=== PATIENT | female | born 1960 | race Caucasian/White ===

== ENCOUNTER → 2016-10-22 | Outpatient (CLI) | payer OTHER ==
--- NOTE | 2016-10-22 10:10 | MR ---
EXAMINATION TYPE: MR cervical spine wo con DATE OF EXAM: 10/22/2016 COMPARISON: NONE HISTORY: Cervical Radiculopathy TECHNIQUE: Multiplanar, multisequence images of the cervical spine were acquired. C2-C3: Right posterior paracentral extension of endplate disc complex causes minimal anterolateral ma ss effect on the thecal sac. No significant foraminal encroachment or central stenosis. There is a sm all central disc protrusion causing slight anterior mass effect on the thecal sac. C3-C4: Listhesis likely contributes to cause some foraminal encroachment greater on the left than on the right. Differential posterior disc bulge causes mild anterior mass effect on the thecal sac, no s ignificant central stenosis. C4-C5: Posterior extension of endplate disc complex results in mild central stenosis, right-sided for aminal encroachment is present greater than left due to lateral extension of endplate disc complex. C5-C6: Moderate central stenosis is present due to posterior extension of endplate disc complex, the endplate changes extending laterally to cause bilateral foraminal encroachment. C6-C7: Posterior extension of endplate disc complex results in mild central canal stenosis, there is bilateral foraminal encroachment left greater than right due to lateral extension endplate disc compl ex. C7-T1: No evidence for degenerative disc disease. No disc bulge/herniation or protrusion. No Canal stenosis. Foramina are patent bilaterally. Cervical segments are intact. Anterolisthesis grade 1 C3-4, retrolisthesis grade 1 C4-5, C5-6. Loss o f disc height and signal present at the intervertebral levels, there is multilevel spondylosis and en dplate discogenic marrow signal change. Cervical spinal cord is showing some questionable increased s ignal on T2-weighted sequences at approximately C5-6 seen on sagittal images, is not well seen on axi al images however and may be artifactual. Craniovertebral junction relationships are within normal l imits. Loss of normal cervical lordosis. IMPRESSION: Multilevel degenerative disc disease and foraminal encroachment. Difficult to exclude myelopathy.
== END | disposition home or self-care (01) ==
LOC: RADMRIMAIN 08:33
PROVIDERS: ATTEND Family Medicine
DX: M50.11 Cervical disc disorder with radiculopathy, high cervical region (principal)
CPT/HCPCS: 72141

== ENCOUNTER 2018-02-27 00:04 | Emergency (ER) | payer OTHER ==
[2018-02-27 00:13] VITALS: RESP 16; TEMP 99.5
[2018-02-27] MEDS ORDERED: ACETAMINOPHEN TAB 325 MG TAB PO STA (00:40)
[2018-02-27] MEDS ORDERED: VANCOMYCIN IV PER PHARMACY 1 EACH MISC MISCELLANE PRN (00:40)
[2018-02-27] MEDS ORDERED: CEFEPIME 2 GM in SODIUM CHLORIDE 0.9% 50 ML IVPB STA (00:41)
[2018-02-27] MEDS ORDERED: VANCOMYCIN 1,250 MG in SODIUM CHLORIDE 0.9% 250 ML IVPB STA (00:48)
--- NOTE | 2018-02-27 00:55 | CT ---
EXAMINATION TYPE: CT brain wo con DATE OF EXAM: 02/27/2018 COMPARISON: 11/28/2013 HISTORY: recent brain blled and brain surgery. AMS scanned CT DLP: 1129.4 mGycm Automated exposure control for dose reduction was used. FINDINGS: There is right posterior frontal craniotomy defect. Ventricles of normal size. There is no mass effec t nor midline shift. There is no sign of intracranial hemorrhage. There is slight widening of the epi dural space over the craniotomy defect. This measures up to 4 mm. There is no significant mass effect . I see no sign of intracranial hemorrhage. There is minimal thalamic calcification. IMPRESSION: RECENT CRANIOTOMY DEFECT. SLIGHT WIDENING OF THE EPIDURAL SPACE AT THE SURGERY SITE WITH LOW-DENSITY FLUID. NO SIGNIFICANT MASS EFFECT. NO EVIDENCE OF ACUTE HEMORRHAGE.
--- NOTE | 2018-02-27 01:32 | ED ---
Altered Mental Status HPI - General Source: family Mode of arrival: wheelchair Limitations: no limitations <Barbara Stern - Last Filed: 02/27/18 12:24> <Ignacia Phan - Last Filed: 02/28/18 02:48> - General Chief Complaint: Altered Mental Status Stated Complaint: Altered Mental Status Time Seen by Provider: 02/27/18 00:18 - History of Present Illness Initial Comments: 57-year-old female With past medical history of previous C1-C2 fracture, spinal stenosis, fall with intracranial hemorrhage status post craniectomy 02/01/2018 presenting today for chief complaint of altered mental status. Patient presents with [id number] and son. Who state that patient was discharged on 02/14 2018 after craniectomy from intracranial hemorrhage performed that [facility] in [place]. They state the hemorrhage was due to multiple falls in the home. They state since discharge patient has been improving daily, they stated that up until the last 2 days patient was almost back to normal state of mind. However for the past 2 days patient has had low-grade fever when visited by home nursing staff. In addition patient has seen more confused, she often forgets the date. Family was concerned o about deterioration of mental status and presented to the emergency department this evening for evaluation via EMS. Upon arrival patient is tachycardic with a low-grade fever of 99.5. Pt complains of headache of the left side of head, chills. Denies neck stiffness, photophobia, shortness of breath, chest pain, back pain, abdominal pain, nausea or vomiting, numbness or tingling, dysuria or hematuria, constipation or diarrhea, or visual changes, or any other complaints. EKG revealed sinus tachycardia. Patient appears confused, when asked today's date she repeats birthday. She is aware of location and year. (Barbara Stern) - Related Data Home Medications Medication Instructions Recorded Confirmed DULoxetine HCL [Cymbalta] 90 mg PO HS 04/20/17 02/27/18 Fluticasone Nasal [place] [Flonase 2 spray EA NOSTRIL BID 04/20/17 02/27/18 Nasal [place]] Ibuprofen [Motrin] 800 mg PO Q8H PRN 04/20/17 02/27/18 Lisinopril(Unknown Dose) 20 mg PO HS 04/20/17 02/27/18 OLANZapine [ZyPREXA] 2.5 mg PO HS 04/20/17 02/27/18 lamoTRIgine [LaMICtal] 400 mg PO HS 04/20/17 04/20/17 Morphine Sulfate ER [Ms Contin] 60 mg PO BID 04/24/17 02/27/18 Allergies Allergy/AdvReac Type Severity Reaction Status Date / Time No Known Allergies Allergy Verified 04/20/17 20:36 Review of Systems ROS Other: All systems not noted in ROS Statement are negative. Constitutional: Reports: fever, chills. Denies: night sweats Eyes: Reports: eye pain (behind left eye, site of facial reconstruction) ENT: Denies: ear pain, throat pain Respiratory: Denies: cough, dyspnea, wheezes, hemoptysis, stridor Cardiovascular: Denies: chest pain, palpitations Gastrointestinal: Denies: abdominal pain, nausea, vomiting, diarrhea, constipation Genitourinary: Denies: urgency, dysuria Skin: Denies: rash Neurological: Reports: headache, weakness, confusion. Denies: numbness, paresthesias, abnormal gait, vertigo <Barbara Stern - Last Filed: 02/27/18 12:24> ROS Other: All systems not noted in ROS Statement are negative. <Ignacia Phan P - Last Filed: 02/28/18 02:48> ROS Statement: Those systems with pertinent positive or pertinent negative responses have been documented in the HPI. Past Medical History Past Medical History: Hypertension Additional Past Medical History / Comment(s): bipolar, C1-C2 fracture October 2013. Spinal stenosis., fall with a brain bleed 02/01/18 History of Any Multi-Drug Resistant Organisms: None Reported Past Surgical History: No Surgical Hx Reported Additional Past Surgical History / Comment(s): brain surgery and facial reconstruction surgery 02/02/2018 Past Psychological History: Bipolar, PTSD Smoking Status: Former smoker Past Alcohol Use History: Occasional Past Drug Use History: Marijuana <Barbara Stern - Last Filed: 02/27/18 12:24> General Exam Limitations: no limitations <Barbara Stern - Last Filed: 02/27/18 12:24> <Ignacia Phan - Last Filed: 02/28/18 02:48> - General Exam Comments Initial Comments: General: The patient is awake and appears confused, with fluctuating mental status. Able to follow verbal commands. Eye: +3 mm pupils are equal, round and reactive to light-appear sluggish, extra -ocular movements are intact. No nystagmus. There is normal conjunctiva bilaterally. No signs of icterus. Ears, nose, mouth and throat: There are moist mucous membranes and no oral lesions. Neck: The neck is supple, there is no tenderness or JVD. No nuchal rigidity or pain to palpation midline. Cardiovascular: There is a regular rate and rhythm. No murmur, rub or gallop is appreciated. Respiratory: Lungs are clear to auscultation, respirations are non-labored, breath sounds are equal. No wheezes, stridor, rales, or rhonchi. Gastrointestinal: Soft, non-distended, non-tender abdomen without masses or organomegaly noted. There is no rebound or guarding present. Bowel sounds are unremarkable Musculoskeletal: Normal ROM, no tenderness. Strength 5/5 of the UE and LE equally b/l. Sensation intact of the UE and LE bilaterally. Radial pulses equal bilaterally 2+. Neurological: A&O x 3. CN II-XII intact, There are no obvious motor or sensory deficits. Coordination appears grossly intact. Speech is appropriate, however slow. Mild dysarthria. (-) Pronator drift. Pt is able to hand flap, however slowed. Skin: Skin is warm and dry and no rashes or lesions are noted. Incision on right side of scalp, non-erythematous. Psychiatric: Cooperative. (Barbara Stern) Vital Signs 02/27/18 02/27/18 02/27/18 00:07 00:59 01:00 Temperature 99.5 F Pulse Rate 112 H 105 H 102 H Respiratory 16 18 18 Rate Blood Pressure 120/81 103/59 103/59 O2 Sat by Pulse 98 Oximetry 02/27/18 02/27/18 02/27/18 01:10 01:20 01:30 Temperature Pulse Rate 109 H 105 H 105 H Respiratory 18 18 17 Rate Blood Pressure 117/73 117/73 110/71 O2 Sat by Pulse Oximetry 02/27/18 02/27/18 02/27/18 01:40 01:42 01:50 Temperature 99.5 F Pulse Rate 105 H 102 H Respiratory 18 16 Rate Blood Pressure 110/71 103/73 O2 Sat by Pulse Oximetry 02/27/18 02/27/18 02:00 02:04 Temperature Pulse Rate 101 H 101 H Respiratory 18 16 Rate Blood Pressure 103/73 114/75 O2 Sat by Pulse Oximetry Medical Decision Making - Lab Data Result diagrams: 02/27/18 02:00 02/27/18 00:55 <Barbara Stern - Last Filed: 02/27/18 12:24> - Lab Data Result diagrams: 02/27/18 02:00 02/27/18 00:55 <Ignacia Phan - Last Filed: 02/28/18 02:48> - Medical Decision Making pt s/p craniotomy/facial reconstruction presenting with low-grade fever and increasing confusion concerning for infection. Sepsis protocol initiated. CT w /o contrast obtained. Blood culture pending. Patient started on vancomycin and cefepime for coverage for any intracranial abscess or infectious process. EKG revealed sinus tachycardia. Troponin (-). CT without contrast revealed low- density fluid in the epidural space, no other acute abnormalities noted. Attending physician Dr. Phan evaluated patient. [facility] neurosurgical team contacted by attending provider, admission accepted by ER physician at [facility]. Dr. Mancuso pr neurosurgeon will be contacted. Pt will be transferred for further escalation and continuity of care. 30 minutes prior to discharge, pt HgB resulted, ~5. Lab called requesting redraw. Pt agreeable with transfer, EMS arrived prior to second result for HgB. However at this time we feel delay in transfer could result in worsening of patient condition. She is currently hemodynamically stable and not acutely altered. Pt will be transfered and [facility] will be notified of repeat HgB studies. Pt transferred in stable condition. (Barbara Stern) I was available for consultation in the emergency department. The history and physical exam were done by the midlevel provider. I was consulted for this patient's care. I reviewed the case with the midlevel provider and based on their presentation of the patient, I agree with the assessment, medical decision making. I contacted [facility] and spoke with Dr. Bowles who reviewed the patient's record, confirms the patient did have neurosurgery with Dr. Sherif Mancuso, accepts the transfer from ER to ER for presumed postoperative intracranial infection. At the time of transfer labs are not resulted, however advised we will fax our lab workup down there he agreed with plan for empiric antibiotics. (Ignacia Phan) - Lab Data Lab Results 02/27/18 02/27/18 02/27/18 Range/Units 00:55 00:55 00:55 WBC (3.8-10.6) k/uL RBC (3.80-5.40) m/uL Hgb (11.4-16.0) gm/dL Hct (34.0-46.0) % MCV (80.0-100.0) fL MCH (25.0-35.0) pg MCHC (31.0-37.0) g/dL RDW (11.5-15.5) % Plt Count (150-450) k/uL Neutrophils % % Lymphocytes % % Monocytes % % Eosinophils % % Basophils % % Neutrophils # (1.3-7.7) k/uL Lymphocytes # (1.0-4.8) k/uL Monocytes # (0-1.0) k/uL Eosinophils # (0-0.7) k/uL Basophils # (0-0.2) k/uL Hypochromasia Poikilocytosis PT 9.8 (9.0-12.0) sec INR 1.0 (<1.2) APTT 24.0 (22.0-30.0) sec Sodium 138 (137-145) mmol/L Potassium 4.5 (3.5-5.1) mmol/L Chloride 106 (98-107) mmol/L Carbon Dioxide 25 (22-30) mmol/L Anion Gap 7 mmol/L BUN 17 (7-17) mg/dL Creatinine 0.66 (0.52-1.04) mg/dL Est GFR (CKD-EPI)AfAm >90 (>60 ml/min/1.73 sqM) Est GFR (CKD-EPI)NonAf >90 (>60 ml/min/1.73 sqM) Glucose 106 H (74-99) mg/dL Plasma Lactic Acid Jaden (0.7-2.0) mmol/L Calcium 8.6 (8.4-10.2) mg/dL Total Bilirubin 0.2 (0.2-1.3) mg/dL AST 38 H (14-36) U/L ALT 25 (9-52) U/L Alkaline Phosphatase 97 (38-126) U/L Troponin I <0.012 (0.000-0.034) ng/mL Total Protein 5.3 L (6.3-8.2) g/dL Albumin 2.7 L (3.5-5.0) g/dL Urine Color Urine Appearance (Clear) Urine pH (5.0-8.0) Ur Specific [place] (1.001-1.035) Urine Protein (Negative) Urine Glucose (UA) (Negative) Urine Ketones (Negative) Urine Blood (Negative) Urine Nitrite (Negative) Urine Bilirubin (Negative) Urine Urobilinogen (<2.0) mg/dL Ur Leukocyte Esterase (Negative) Urine WBC (0-5) /hpf Ur Squamous Epith Cells (0-4) /hpf Amorphous Sediment (None) /hpf Urine Bacteria (None) /hpf Hyaline Casts (0-2) /lpf Urine Mucus (None) /hpf Influenza Type A RNA (Not Detectd) Influenza Type B (PCR) (Not Detectd) 02/27/18 02/27/18 02/27/18 Range/Units 00:55 01:02 01:34 WBC (3.8-10.6) k/uL RBC (3.80-5.40) m/uL Hgb (11.4-16.0) gm/dL Hct (34.0-46.0) % MCV (80.0-100.0) fL MCH (25.0-35.0) pg MCHC (31.0-37.0) g/dL RDW (11.5-15.5) % Plt Count (150-450) k/uL Neutrophils % % Lymphocytes % % Monocytes % % Eosinophils % % Basophils % % Neutrophils # (1.3-7.7) k/uL Lymphocytes # (1.0-4.8) k/uL Monocytes # (0-1.0) k/uL Eosinophils # (0-0.7) k/uL Basophils # (0-0.2) k/uL Hypochromasia Poikilocytosis PT (9.0-12.0) sec INR (<1.2) APTT (22.0-30.0) sec Sodium (137-145) mmol/L Potassium (3.5-5.1) mmol/L Chloride (98-107) mmol/L Carbon Dioxide (22-30) mmol/L Anion Gap mmol/L BUN (7-17) mg/dL Creatinine (0.52-1.04) mg/dL Est GFR (CKD-EPI)AfAm (>60 ml/min/1.73 sqM) Est GFR (CKD-EPI)NonAf (>60 ml/min/1.73 sqM) Glucose (74-99) mg/dL Plasma Lactic Acid Jaden 1.2 (0.7-2.0) mmol/L Calcium (8.4-10.2) mg/dL Total Bilirubin (0.2-1.3) mg/dL AST (14-36) U/L ALT (9-52) U/L Alkaline Phosphatase (38-126) U/L Troponin I (0.000-0.034) ng/mL Total Protein (6.3-8.2) g/dL Albumin (3.5-5.0) g/dL Urine Color Yellow Urine Appearance Cloudy H (Clear) Urine pH 8.5 H (5.0-8.0) Ur Specific [place] 1.013 (1.001-1.035) Urine Protein Trace H (Negative) Urine Glucose (UA) Negative (Negative) Urine Ketones Negative (Negative) Urine Blood Negative (Negative) Urine Nitrite Negative (Negative) Urine Bilirubin Negative (Negative) Urine Urobilinogen 2.0 (<2.0) mg/dL Ur Leukocyte Esterase Negative (Negative) Urine WBC <1 (0-5) /hpf Ur Squamous Epith Cells 6 H (0-4) /hpf Amorphous Sediment Few H (None) /hpf Urine Bacteria Occasional H (None) /hpf Hyaline Casts 4 H (0-2) /lpf Urine Mucus Rare H (None) /hpf Influenza Type A RNA Not Detected (Not Detectd) Influenza Type B (PCR) Not Detected (Not Detectd) 02/27/18 Range/Units 02:00 WBC 5.3 (3.8-10.6) k/uL RBC 2.09 L (3.80-5.40) m/uL Hgb 5.8 L* (11.4-16.0) gm/dL Hct 18.3 L* (34.0-46.0) % MCV 87.6 (80.0-100.0) fL MCH 27.6 (25.0-35.0) pg MCHC 31.5 (31.0-37.0) g/dL RDW 15.4 (11.5-15.5) % Plt Count 555 H (150-450) k/uL Neutrophils % 67 % Lymphocytes % 24 % Monocytes % 5 % Eosinophils % 2 % Basophils % 0 % Neutrophils # 3.6 (1.3-7.7) k/uL Lymphocytes # 1.3 (1.0-4.8) k/uL Monocytes # 0.3 (0-1.0) k/uL Eosinophils # 0.1 (0-0.7) k/uL Basophils # 0.0 (0-0.2) k/uL Hypochromasia Marked Poikilocytosis Slight PT (9.0-12.0) sec INR (<1.2) APTT (22.0-30.0) sec Sodium (137-145) mmol/L Potassium (3.5-5.1) mmol/L Chloride (98-107) mmol/L Carbon Dioxide (22-30) mmol/L Anion Gap mmol/L BUN (7-17) mg/dL Creatinine (0.52-1.04) mg/dL Est GFR (CKD-EPI)AfAm (>60 ml/min/1.73 sqM) Est GFR (CKD-EPI)NonAf (>60 ml/min/1.73 sqM) Glucose (74-99) mg/dL Plasma Lactic Acid Jaden (0.7-2.0) mmol/L Calcium (8.4-10.2) mg/dL Total Bilirubin (0.2-1.3) mg/dL AST (14-36) U/L ALT (9-52) U/L Alkaline Phosphatase (38-126) U/L Troponin I (0.000-0.034) ng/mL Total Protein (6.3-8.2) g/dL Albumin (3.5-5.0) g/dL Urine Color Urine Appearance (Clear) Urine pH (5.0-8.0) Ur Specific [place] (1.001-1.035) Urine Protein (Negative) Urine Glucose (UA) (Negative) Urine Ketones (Negative) Urine Blood (Negative) Urine Nitrite (Negative) Urine Bilirubin (Negative) Urine Urobilinogen (<2.0) mg/dL Ur Leukocyte Esterase (Negative) Urine WBC (0-5) /hpf Ur Squamous Epith Cells (0-4) /hpf Amorphous Sediment (None) /hpf Urine Bacteria (None) /hpf Hyaline Casts (0-2) /lpf Urine Mucus (None) /hpf Influenza Type A RNA (Not Detectd) Influenza Type B (PCR) (Not Detectd) - EKG Data EKG Comments: A 12-lead EKG was performed and shows the following: Rate is 104BPM, and rhythm is normal sinus. There are normal QRS complexes and normal R-wave progression. ST segments have no elevation or depression, and NC segments appear normal. Sinus tachycardia, otherwise normal EKG. (Barbara Stern) Disposition Time of Disposition: 01:33 - Out of Hospital Transfer - Req. Specs Out of Hospital Transfer - Requested Specifics: Other Emergency Center ([facility] <Barbara Stern - Last Filed: 02/27/18 12:24> <Ignacia Phan - Last Filed: 02/28/18 02:48> Clinical Impression: Altered mental status Disposition: OTHER INSTITUTION NOT DEFINED Condition: Stable Instructions: Altered Mental Status (ED) Referrals: Debra Mccray DO [Primary Care Provider] - 1-2 days
[2018-02-27 01:37] LABS: Prothrombin Time 9.8 sec (9.0-12.0)
[2018-02-27 01:40] LABS: ALT 25 U/L (9-52); AST 38 U/L (14-36); Albumin 2.7 g/dL (3.5-5.0); Alkaline Phosphatase 97 U/L (38-126); Anion Gap 7 mmol/L; Blood Urea Nitrogen 17 mg/dL (7-17); Calcium 8.6 mg/dL (8.4-10.2); Carbon Dioxide 25 mmol/L (22-30); Chloride 106 mmol/L (98-107); Glucose 106 mg/dL (74-99); Potassium 4.5 mmol/L (3.5-5.1); Sodium 138 mmol/L (137-145); Total Bilirubin 0.2 mg/dL (0.2-1.3); Total Protein 5.3 g/dL (6.3-8.2)
[2018-02-27] MEDS: SODIUM CHLORIDE 0.9% 500 ML 500 ML IV SCH (01:40)
[2018-02-27 02:05] VITALS: BP 114/75; PULSE 101
[2018-02-27 02:06] LABS: Amorphous Sediment,Urine Few /hpf; Appearance,Urine Cloudy (Clear); Bacteria,Urine Occasional /hpf; Bilirubin,Urine Negative (Negative); Blood,Urine Negative (Negative); Color,Urine Yellow; Glucose,Urine (UA) Negative (Negative); Hyaline Casts,Urine 4 /lpf (0-2); Ketones,Urine Negative (Negative); Leukocyte Esterase,Urine Negative (Negative); Mucus,Urine Rare /hpf; Nitrite,Urine Negative (Negative); PH, Urine 8.5 (5.0-8.0); Protein,Urine Trace (Negative); Specific Gravity,Urine 1.013 (1.001-1.035); Squamous Epithelial Cell,Urine 6 /hpf (0-4); WBC,Urine <1 /hpf (0-5)
[2018-02-27 02:12] LABS: Basophils % (A) 0 %; Eosinophils # (A) 0.1 k/uL (0-0.7); Eosinophils % (A) 2 %; Hypochromasia Marked; Lymphocytes # (A) 1.3 k/uL (1.0-4.8); Lymphocytes % (A) 24 %; MCH 27.6 pg (25.0-35.0); MCHC 31.5 g/dL (31.0-37.0); MCV 87.6 fL (80.0-100.0); Mean Platelet Volume 6.3; Monocytes # (A) 0.3 k/uL (0-1.0); Monocytes % (A) 5 %; Neutrophils # (A) 3.6 k/uL (1.3-7.7); Neutrophils % (A) 67 %; Platelet Count 555 k/uL (150-450); Poikilocytosis Slight; RBC 2.09 m/uL (3.80-5.40); RDW 15.4 % (11.5-15.5); WBC 5.3 k/uL (3.8-10.6)
[2018-02-27 02:27] LABS: HCT 18.3 % (34.0-46.0); HGB 5.8 gm/dL (11.4-16.0)
== END 2018-02-27 02:15 | disposition other institution (70) ==
LOC: EC 00:04
DX: R41.82 Altered mental status, unspecified (principal); R51 Headache; R50.9 Fever, unspecified; R00.0 Tachycardia, unspecified; I10 Essential (primary) hypertension; F31.9 Bipolar disorder, unspecified; F43.10 Post-traumatic stress disorder, unspecified; Z91.81 History of falling; Z87.39 Personal history of other diseases of the musculoskeletal system and connective tissue; Z98.890 Other specified postprocedural states; Z87.891 Personal history of nicotine dependence; Z79.891 Long term (current) use of opiate analgesic; Z79.899 Other long term (current) drug therapy
CPT/HCPCS: 36415; 93005; 80053; 83605; 84484; 85025; 85610; 85730; 81001; 87040; 87086; 87502; 70450; 99285; J0692

== ENCOUNTER → 2018-07-05 | Outpatient (CLI) | payer OTHER ==
--- NOTE | 2018-07-05 12:16 | CT ---
EXAMINATION TYPE: CT brain wo con DATE OF EXAM: 07/05/2018 COMPARISON: 02/27/2018 INDICATION: Traumatic subdural hemorrhage w/o LOC DLP: 1177 mGycm, Automated exposure control for dose reduction was used. CONTRAST: None CT of the brain is performed utilizing 3 mm thick sections through the posterior fossa and 3 mm thick sections through the remaining calvarium. Study is performed within 24 hours of arrival to the hosp ital. No abnormal hyperdensity is present to suggest an acute intracranial hemorrhage. No mass lesion is evident. Physiologic basal ganglia calcification is present No acute infarcts are evident. The previous subtle changes along the right parietal region are not ev ident on the current examination. Ventricles and sulci are appropriate for the patient age. Paranasal sinuses and mastoid air cells within the [id number] are clear. Old right temporal craniotomy is evident. There is prior repair of left facial bones. IMPRESSIONS: 1. No acute intracranial process. 2. Old postsurgical changes right temporal bone and facial bones.
== END ==
LOC: RADCTMAIN 11:34
PROVIDERS: ATTEND Neurological Surgery
DX: S06.5X0D Traumatic subdural hemorrhage without loss of consciousness, subsequent encounter (principal)
CPT/HCPCS: 70450

== ENCOUNTER 2024-04-04 18:53 | Emergency (ER) | payer MEDICARE, OTHER ==
[2024-04-04 19:04] VITALS: RESP 18
[2024-04-04 19:50] LABS: Basophils # (A) 0.1 k/uL (0-0.2); Basophils % (A) 0 %; Eosinophils # (A) 0.1 k/uL (0-0.7); Eosinophils % (A) 1 %; HCT 43.8 % (34.0-46.0); HGB 13.7 gm/dL (11.4-16.0); Lymphocytes # (A) 1.9 k/uL (1.0-4.8); Lymphocytes % (A) 11 %; MCH 28.4 pg (25.0-35.0); MCHC 31.3 g/dL (31.0-37.0); Mean Platelet Volume 9.2; Monocytes # (A) 0.7 k/uL (0-1.0); Monocytes % (A) 4 %; Neutrophils # (A) 14.7 k/uL (1.3-7.7); Neutrophils % (A) 84 %; Platelet Count 252 k/uL (150-450); RBC 4.82 m/uL (3.80-5.40); WBC 17.5 k/uL (3.8-10.6)
[2024-04-04 19:57] LABS: ALT 27 U/L (4-34); AST 39 U/L (14-36); African American GFR (CKD) >90 (>60 ml/min/1.73 sqM); Albumin 4.9 g/dL (3.5-5.0); Alkaline Phosphatase 108 U/L (38-126); Anion Gap 11 mmol/L; Blood Urea Nitrogen 16 mg/dL (7-17); Calcium 10.6 mg/dL (8.4-10.2); Carbon Dioxide 26 mmol/L (22-30); Chloride 103 mmol/L (98-107); Glucose 109 mg/dL (74-99); Lipase 38 U/L (23-300); Magnesium 1.8 mg/dL (1.6-2.3); Non-African American GFR(CKD) >90 (>60 ml/min/1.73 sqM); Potassium 4.1 mmol/L (3.5-5.1); Sodium 140 mmol/L (137-145); Total Bilirubin 0.8 mg/dL (0.2-1.3); Total Protein 7.9 g/dL (6.3-8.2)
[2024-04-04 20:27] LABS: Partial Thromboplastin Time 24.3 sec (22.0-30.0); Prothrombin Time 11.1 sec (10.0-12.5)
[2024-04-04] MEDS: MAG HYDROX/AL HYDROX/SIMETH 30 ML CUP PO STA (20:39)
[2024-04-04] MEDS: LIDOCAINE VISCOUS 2% 15 ML CUP MUCOUS MEM ONE (20:39)
[2024-04-04] MEDS: FAMOTIDINE 20 MG/2 ML VIAL IV STA (20:43)
[2024-04-04] MEDS: ONDANSETRON 4 MG/2 ML VIAL IVP STA (20:43)
[2024-04-04 21:02] VITALS: TEMP 99.1
[2024-04-04] MEDS ORDERED: SUCRALFATE 1 GM TAB PO STA (21:54)
--- NOTE | 2024-04-04 21:56 | ED ---
GI Bleed HPI - General Chief complaint: GI Bleed Stated complaint: Vomiting blood Time Seen by Provider: 04/04/24 19:05 Source: patient Mode of arrival: ambulatory Limitations: no limitations - History of Present Illness Initial comments: 63-year-old female presents emergency department reporting vomiting. States that she began vomiting some dark material earlier today. She had 2 episodes. Patient states that this is a recurrent issue for her. She has history of chronic gastritis. Patient has required blood and iron transfusions before in the past. Patient reports to a recent EGD. She takes medication such as Carafate but she ran out of this medication 3 days ago. Patient admits to upset stomach. Denies any significant abdominal pain. No fevers. Denies NSAID or alcohol use. No history of esophageal varices. No other alleviating, precipitating or modifying factors - Related Data Home Medications Medication Instructions Recorded Confirmed DULoxetine HCL [Cymbalta] 90 mg PO HS 04/20/17 02/27/18 Fluticasone Nasal [place] [Flonase 2 spray EA NOSTRIL BID 04/20/17 02/27/18 Nasal [place]] Ibuprofen [Motrin] 800 mg PO Q8H PRN 04/20/17 02/27/18 Lisinopril(Unknown Dose) 20 mg PO HS 04/20/17 02/27/18 OLANZapine [ZyPREXA] 2.5 mg PO HS 04/20/17 02/27/18 lamoTRIgine [LaMICtal] 400 mg PO HS 04/20/17 04/20/17 Morphine Sulfate ER [Ms Contin] 60 mg PO BID 04/24/17 02/27/18 Previous Rx's Medication Instructions Recorded Sucralfate [Carafate] 1 gm PO ACHS #120 tablet 04/04/24 Allergies Allergy/AdvReac Type Severity Reaction Status Date / Time topiramate [From Topamax] Allergy Unknown Verified 04/04/24 19:01 Review of Systems ROS Statement: Those systems with pertinent positive or pertinent negative responses have been documented in the HPI. ROS Other: All systems not noted in ROS Statement are negative. Past Medical History Past Medical History: Hypertension Additional Past Medical History / Comment(s): bipolar, C1-C2 fracture October 2013. Spinal stenosis., fall with a brain bleed 02/01/18 History of Any Multi-Drug Resistant Organisms: None Reported Past Surgical History: No Surgical Hx Reported Additional Past Surgical History / Comment(s): brain surgery and facial recons truction surgery 02/02/2018 Past Psychological History: Bipolar, PTSD Smoking Status: Never smoker Past Alcohol Use History: None Reported, Occasional Past Drug Use History: Marijuana General Exam Limitations: no limitations General appearance: alert, in no apparent distress Head exam: Present: atraumatic, normocephalic, normal inspection Eye exam: Present: normal appearance, PERRL, EOMI. Absent: scleral icterus, conjunctival injection, periorbital swelling ENT exam: Present: normal exam, mucous membranes moist Neck exam: Present: normal inspection. Absent: tenderness, meningismus, lymphadenopathy Respiratory exam: Present: normal lung sounds bilaterally. Absent: respiratory distress, wheezes, rales, rhonchi, stridor Cardiovascular Exam: Present: regular rate, normal rhythm, normal heart sounds. Absent: systolic murmur, diastolic murmur, rubs, gallop, clicks GI/Abdominal exam: Present: soft, normal bowel sounds. Absent: distended, tenderness, guarding, rebound, rigid Extremities exam: Present: normal inspection, full ROM, normal capillary refill. Absent: tenderness, pedal edema, joint swelling, calf tenderness Back exam: Present: normal inspection Neurological exam: Present: alert, oriented X3, CN II-XII intact Psychiatric exam: Present: normal affect, normal mood Skin exam: Present: warm, dry, intact, normal color. Absent: rash Course Vital Signs 04/04/24 04/04/24 04/04/24 19:01 21:01 21:59 Temperature 98.2 F 99.1 F Pulse Rate 76 89 82 Respiratory 18 18 18 Rate Blood Pressure 159/91 180/97 126/82 O2 Sat by Pulse 97 96 96 Oximetry Medical Decision Making - Medical Decision Making Was pt. sent in by a medical professional or institution (, PA, SEED TRUCKER, urgent care, hospital, or senior living...) When possible be specific @ -No Did you speak to anyone other than the patient for history (EMS, parent, family, police, friend...)? What history was obtained from this source @ -No Did you review nursing and triage notes (agree or disagree)? Why? @ -I reviewed and agree with nursing and triage notes Were old charts reviewed (outside hosp., previous admission, EMS record, old EKG, old radiological studies, urgent care reports/EKG's, senior living records)? Report findings @ -No old charts were reviewed Differential Diagnosis (chest pain, altered mental status, abdominal pain women, abdominal pain men, vaginal bleeding, weakness, fever, dyspnea, syncope, headache, dizziness, GI bleed, back pain, seizure, CVA, palpatations, mental health, musculoskeletal)? @ -Differential GI Bleed: Esophageal varices, aortoenteric fistula, Luci-Petersen, gastritis, peptic ulcer disease, diverticulosis, inflammatory bowel disease, hemorrhoids, fissure, colitis, malignancy, Meckel's diverticulum, this is not meant to be an all- inclusive list. EKG interpreted by me (3pts min.). @ -Not done X-rays interpreted by me (1pt min.). @ -None done CT interpreted by me (1pt min.). @ -None done U/S interpreted by me (1pt. min.). @ -None done What testing was considered but not performed or refused? (CT, X-rays, U/S, labs)? Why? @ -A gastric occult was considered however patient does not have any vomiting in the emergency department What meds were considered but not given or refused? Why? @ -None Did you discuss the management of the patient with other professionals (leyda brandon i.eFreddy Morales, PA, SEED TRUCKER, lab, RT, psych nurse, social service director, save all operator, teacher, aoc plans intelligence officer chief, immigration case worker)? Give summary @ -No Was smoking cessation discussed for >3mins.? @ -No Was critical care preformed (if so, how long)? @ -No Were there social determinants of health that impacted care today? How? (Homelessness, low income, unemployed, alcoholism, drug addiction, transportation, low edu. Level, literacy, decrease access to med. care, skilled nursing, rehab)? @ -No Was there de-escalation of care discussed even if they declined (Discuss DNR or withdrawal of care, Hospice)? DNR status @ -No What co-morbidities impacted this encounter? (DM, HTN, Smoking, COPD, CAD, Cancer, CVA, ARF, Chemo, Hep., AIDS, mental health diagnosis, sleep apnea, morbid obesity)? @ -Gastritis Was patient admitted / discharged? Hospital course, mention meds given and route, prescriptions, significant lab abnormalities, going to OR and other pertinent info. @ -Upon arrival patient seen and evaluated in room 3. Thorough history and physical exam was performed. IV was established. Laboratory studies are condu cted. Patient was given a GI cocktail and a dose of her Carafate. She does not have any vomiting in the emergency department therefore I cannot confirm whether the patient is vomiting blood. I did discuss her hemoglobin results. At this time I did offer overnight observation. Patient feels comfortable with her current blood counts and the fact that she has not had any vomiting in several hours. Patient would prefer to go home. She will be discharged. Instructed to follow-up with her GI doctor. I did refill her Carafate. She is to return for any new or worsening symptoms. Patient agreeable plan was discharged in stable condition Undiagnosed new problem with uncertain prognosis? @ -No Drug Therapy requiring intensive monitoring for toxicity (Heparin, Nitro, Insulin, Cardizem)? @ -No Were any procedures done? @ -No Diagnosis/symptom? @ -Acute vomiting, history of gastritis Acute, or Chronic, or Acute on Chronic? @ -Acute on chronic Uncomplicated (without systemic symptoms) or Complicated (systemic symptoms)? @ -Complicated Side effects of treatment? @ -No Exacerbation, Progression, or Severe Exacerbation? @ -Yes Poses a threat to life or bodily function? How? (Chest pain, USA, NC, pneumonia, PE, COPD, DKA, ARF, appy, cholecystitis, CVA, Diverticulitis, Homicidal, Suicidal, threat to staff... and all critical care pts) @ -No - Lab Data Result diagrams: 04/04/24 19:46 04/04/24 19:46 Lab Results 04/04/24 04/04/24 04/04/24 Range/Units 19:46 19:46 19:46 WBC 17.5 H (3.8-10.6) k/uL RBC 4.82 (3.80-5.40) m/uL Hgb 13.7 (11.4-16.0) gm/dL Hct 43.8 (34.0-46.0) % MCV 91.0 (80.0-100.0) fL MCH 28.4 (25.0-35.0) pg MCHC 31.3 (31.0-37.0) g/dL RDW 16.0 H (11.5-15.5) % Plt Count 252 (150-450) k/uL MPV 9.2 Neutrophils % 84 % Lymphocytes % 11 % Monocytes % 4 % Eosinophils % 1 % Basophils % 0 % Neutrophils # 14.7 H (1.3-7.7) k/uL Lymphocytes # 1.9 (1.0-4.8) k/uL Monocytes # 0.7 (0-1.0) k/uL Eosinophils # 0.1 (0-0.7) k/uL Basophils # 0.1 (0-0.2) k/uL PT 11.1 (10.0-12.5) sec INR 1.0 (<1.2) APTT 24.3 (22.0-30.0) sec Sodium 140 (137-145) mmol/L Potassium 4.1 (3.5-5.1) mmol/L Chloride 103 (98-107) mmol/L Carbon Dioxide 26 (22-30) mmol/L Anion Gap 11 mmol/L BUN 16 (7-17) mg/dL Creatinine 0.62 (0.52-1.04) mg/dL Est GFR (CKD-EPI)AfAm >90 (>60 ml/min/1.73 sqM) Est GFR (CKD-EPI)NonAf >90 (>60 ml/min/1.73 sqM) Glucose 109 H (74-99) mg/dL Lactic Ac Sepsis Rflx Plasma Lactic Acid Jaden (0.7-2.0) mmol/L Calcium 10.6 H (8.4-10.2) mg/dL Magnesium 1.8 (1.6-2.3) mg/dL Total Bilirubin 0.8 (0.2-1.3) mg/dL AST 39 H (14-36) U/L ALT 27 (4-34) U/L Alkaline Phosphatase 108 (38-126) U/L Total Protein 7.9 (6.3-8.2) g/dL Albumin 4.9 (3.5-5.0) g/dL Lipase 38 (23-300) U/L Blood Type Blood Type Confirm Blood Type Recheck Bld Type Recheck Status Antibody Screen Spec Expiration Date 01/09/25 01/09/25 01/09/25 Range/Units 19:46 19:47 20:07 WBC (3.8-10.6) k/uL RBC (3.80-5.40) m/uL Hgb (11.4-16.0) gm/dL Hct (34.0-46.0) % MCV (80.0-100.0) fL MCH (25.0-35.0) pg MCHC (31.0-37.0) g/dL RDW (11.5-15.5) % Plt Count (150-450) k/uL MPV Neutrophils % % Lymphocytes % % Monocytes % % Eosinophils % % Basophils % % Neutrophils # (1.3-7.7) k/uL Lymphocytes # (1.0-4.8) k/uL Monocytes # (0-1.0) k/uL Eosinophils # (0-0.7) k/uL Basophils # (0-0.2) k/uL PT (10.0-12.5) sec INR (<1.2) APTT (22.0-30.0) sec Sodium (137-145) mmol/L Potassium (3.5-5.1) mmol/L Chloride (98-107) mmol/L Carbon Dioxide (22-30) mmol/L Anion Gap mmol/L BUN (7-17) mg/dL Creatinine (0.52-1.04) mg/dL Est GFR (CKD-EPI)AfAm (>60 ml/min/1.73 sqM) Est GFR (CKD-EPI)NonAf (>60 ml/min/1.73 sqM) Glucose (74-99) mg/dL Lactic Ac Sepsis Rflx Y Plasma Lactic Acid Jaden 2.3 H* (0.7-2.0) mmol/L Calcium (8.4-10.2) mg/dL Magnesium (1.6-2.3) mg/dL Total Bilirubin (0.2-1.3) mg/dL AST (14-36) U/L ALT (4-34) U/L Alkaline Phosphatase (38-126) U/L Total Protein (6.3-8.2) g/dL Albumin (3.5-5.0) g/dL Lipase (23-300) U/L Blood Type O Negative Blood Type Confirm Blood Type Recheck No Previous Record Bld Type Recheck Status CABO Indicated Antibody Screen NEGATIVE Spec Expiration Date 04/07/2024 - 234604/04/24 Range/Units 20:27 WBC (3.8-10.6) k/uL RBC (3.80-5.40) m/uL Hgb (11.4-16.0) gm/dL Hct (34.0-46.0) % MCV (80.0-100.0) fL MCH (25.0-35.0) pg MCHC (31.0-37.0) g/dL RDW (11.5-15.5) % Plt Count (150-450) k/uL MPV Neutrophils % % Lymphocytes % % Monocytes % % Eosinophils % % Basophils % % Neutrophils # (1.3-7.7) k/uL Lymphocytes # (1.0-4.8) k/uL Monocytes # (0-1.0) k/uL Eosinophils # (0-0.7) k/uL Basophils # (0-0.2) k/uL PT (10.0-12.5) sec INR (<1.2) APTT (22.0-30.0) sec Sodium (137-145) mmol/L Potassium (3.5-5.1) mmol/L Chloride (98-107) mmol/L Carbon Dioxide (22-30) mmol/L Anion Gap mmol/L BUN (7-17) mg/dL Creatinine (0.52-1.04) mg/dL Est GFR (CKD-EPI)AfAm (>60 ml/min/1.73 sqM) Est GFR (CKD-EPI)NonAf (>60 ml/min/1.73 sqM) Glucose (74-99) mg/dL Lactic Ac Sepsis Rflx Plasma Lactic Acid Jaden (0.7-2.0) mmol/L Calcium (8.4-10.2) mg/dL Magnesium (1.6-2.3) mg/dL Total Bilirubin (0.2-1.3) mg/dL AST (14-36) U/L ALT (4-34) U/L Alkaline Phosphatase (38-126) U/L Total Protein (6.3-8.2) g/dL Albumin (3.5-5.0) g/dL Lipase (23-300) U/L Blood Type Blood Type Confirm O Negative Blood Type Recheck Bld Type Recheck Status Antibody Screen Spec Expiration Date Disposition Clinical Impression: Acute vomiting Disposition: HOME SELF-CARE Condition: Stable Instructions (If sedation given, give patient instructions): Acute Nausea and Vomiting (ED) Additional Instructions: Please resume the Carafate. Follow-up with the GI doctor within 1-2 weeks. Return for any new or worsening symptoms Prescriptions: Sucralfate [Carafate] 1 gm PO ACHS #120 tablet Is patient prescribed a controlled substance at d/c from ED?: No Referrals: Lawrence Bennett MD [Primary Care Provider] - 1-2 days Time of Disposition: 21:56
[2024-04-04 22:08] VITALS: BP 126/82; PULSE 82
== END 2024-04-04 22:08 | disposition home or self-care (01) ==
LOC: EC 18:53
DX: R11.10 Vomiting, unspecified (principal); K29.50 Unspecified chronic gastritis without bleeding
CPT/HCPCS: 36415; 86900; 86901; 80053; 83605; 83690; 83735; 85025; 85610; 85730; 86850; 99284; 96374; 96375; J2405; J3490